=== PATIENT | female | born 1975 | race Caucasian/White ===

== ENCOUNTER 2016-08-20 06:20 | Emergency (ER) | payer MEDICAID ==
[~2016-08-20] VITALS: Ht 160 cm; Wt 67.0 kg
[2016-08-20 06:23] VITALS: Ht 160 cm; Wt 67.0 kg
--- NOTE | 2016-08-20 06:52 | ERD ---
ER Documentation Chief Complaint Date/Time DATE: 08/20/16 TIME: 06:50 Chief Complaint cough x 1 week HPI 40-year-old female presents to the emergency department for cough 4 weeks. Patient states cough is productive with green and yellow sputum. No bloody sputum. Patient has shortness of breath with coughing. No difficulty breathing. No wheezing. No fevers or chills. Has been taking Robitussin and "something for congestion" for the past week without improvement. Patient states cough is worse at night. No chest pain, chest pressure or heart palpitations. No abdominal pain, nausea, vomiting or diarrhea. No sick contacts. ROS All systems reviewed and are negative except as per history of present illness. Medications Home Meds Active Scripts Guaifenesin/Codeine Phosphate (CHERATUSSIN AC SYRUP) 118 Ml Liquid, 5 ML PO Q4H Y for COUGH, #118 ML Prov:BAKARI HARGROVE NP 08/20/16 Allergies Allergies: Coded Allergies: No Known Allergy (Unverified , 08/20/16) PMhx/Soc Medical and Surgical Hx: pt denies Medical Hx, pt denies Surgical Hx Hx Alcohol Use: No Hx Substance Use: No Hx Tobacco Use: No Smoking Status: Never smoker Physical Exam Vitals Vital Signs Date Time Temp Pulse Resp B/P Pulse Ox O2 Delivery O2 Flow Rate FiO2 08/20/16 06:23 98.2 70 20 143/63 99 Physical Exam Const: No acute distress, alert Head: Atraumatic Eyes: Normal Conjunctiva ENT: Normal External Ears, Nose and Mouth. Neck: Full range of motion..~ No meningismus. Resp: Clear to auscultation bilaterally. No wheezing, rhonchi or crackles. No stridor or labored breathing. Cardio: Regular rate and rhythm, no murmurs Abd: Soft, non tender, non distended. Normal bowel sounds Skin: No petechiae or rashes Back: No midline or flank tenderness Ext: No cyanosis, or edema Neur: Awake and alert Psych: Normal Mood and Affect Procedures/MDM Patient: JACOBO GARCIA : 1975 Age: 40 Sex: F MR #: [id number] DOS: 08/20/16 0641 Ordering MD: BAKARI HARGROVE NP Location: [facility] Room/Bed: PROCEDURE: CHEST - 1 VIEW CLINICAL INDICATION: 40-year-old female with cough. TECHNIQUE: A single frontal AP semi-erect portable view of the chest was performed. The images were reviewed on a PACS workstation. COMPARISON: None. FINDINGS: The cardiomediastinal silhouette has a normal appearance. There is no evidence for an infiltrate. There is no evidence for congestive heart failure. There is no evidence for pneumothorax. The osseous structures are intact. IMPRESSION: No evidence for active cardiopulmonary disease. MDM: 40-year-old female presents to the emergency department for productive cough 4 weeks. Upon arrival, patient is afebrile. No signs or symptoms of respiratory distress. Oxygen saturation 99% on room air. Lung exam and ENT exam are unremarkable. Since symptoms have been going on for 4 weeks and patient has not had a chest x-ray a chest x-ray was ordered. Chest x-ray reviewed by radiologist as no evidence of active cardiopulmonary disease. Vitals are stable. No respiratory distress. Patient remains alert and stable. Low suspicion for pneumonia, pleural effusion, pneumothorax or acute FL. Differential diagnosis includes but not limited to URI, influenza, otitis media , otitis externa, asthma exacerbation, croup, bronchitis, bronchiolitis and costochondritis. Patient is appropriate for outpatient management and will be given prescription for ibuprofen. Instructed patient to follow-up with primary care provider in the next 2-3 days for reassessment and additional management. Return to ED for any high fever, chest pain, difficulty breathing, shortness breath, wheezing, vomiting, diarrhea, abdominal pain or any new or worsening symptoms. Patient verbalizes understanding. All questions answered at discharge. Departure Diagnosis: Primary Impression: URI (upper respiratory infection) URI type: unspecified viral URI Qualified Code: J06.9 - Viral upper respiratory tract infection Condition: Stable BAKARI HARGROVE NP August 20, 2016 06:52
--- NOTE | 2016-08-20 07:38 | RADRPT ---
PROCEDURE: CHEST - 1 VIEW CLINICAL INDICATION: 40-year-old female with cough. TECHNIQUE: A single frontal AP semi-erect portable view of the chest was performed. The images we re reviewed on a PACS workstation. COMPARISON: None. FINDINGS: The cardiomediastinal silhouette has a normal appearance. There is no evidence for an infiltrate. There is no evidence for congestive heart failure. There is no evidence for pneumothorax. The osseou s structures are intact. IMPRESSION: No evidence for active cardiopulmonary disease. .Keven Capone MD, MD Date Time Electronically viewed and signed by .Keven Capone MD, on 08/20/2016 07:38 .M/
[2016-08-20] MEDS ORDERED: GUAI118L22 PO (08:03)
== END 2016-08-20 08:14 | disposition home or self-care (01) ==
LOC: FTE 06:20
DX: J06.9 Acute upper respiratory infection, unspecified (principal)
CPT/HCPCS: 71010; Z7502

== ENCOUNTER 2018-05-27 17:26 | Emergency (ER) | payer MEDICAID ==
[~2018-05-27] VITALS: Ht 165.1 cm; Wt 65.3 kg
[~2018-05-27 17:26] MED LIST: GUAI118L22 PO
[2018-05-27 17:29] VITALS: Ht 165.1 cm; Wt 65.3 kg
[2018-05-27] MEDS ORDERED: KETOROLAC 60 MG INJ IM STA (19:11)
[2018-05-27] MEDS ORDERED: ONDANSETRON (ODT) 4 MG TAB ODT STA (19:11)
[2018-05-27] MEDS ORDERED: ACETAMINOPHEN 325 MG TAB PO ONE (19:30)
[2018-05-27] MEDS ORDERED: BENZ-6 PO (20:01)
[2018-05-27] MEDS ORDERED: ONDA4TAB14 PO (20:01)
[2018-05-27] MEDS ORDERED: ACET500C5 PO (20:01)
--- NOTE | 2018-05-27 20:04 | ERD ---
ER Documentation Chief Complaint Chief Complaint Fever, [place], body aches X 3 days HPI 42-year-old female patient with no significant past medical history presents to ED complaining of fever, headache, cough, body aches that started about 3 days ago. Patient reports that she has had a few episodes of nonbilious nonbloody vomiting. Denies any sick contacts. Denies any chest pain, shortness of breath, diarrhea, neck stiffness. ROS All systems reviewed and are negative except as per history of present illness. Medications Home Meds Active Scripts Benzonatate* (Tessalon Perle*) 100 Mg Capsule, 100 MG PO Q8H PRN for COUGH, #20 CAP Prov:AVIVA JAY PA-C 05/27/18 Acetaminophen* (Tylophen*) 500 Mg Capsule, 1 CAP PO Q6H PRN for PAIN AND OR ELEVATED TEMP, #20 CAP Prov:AVIVA JAY PA-C 05/27/18 Ondansetron (Ondansetron Odt) 4 Mg Tab.rapdis, 4 MG PO Q6H PRN for NAUSEA AND/OR VOMITING, #10 TAB Prov:AVIVA JAY PA-C 05/27/18 Guaifenesin/Codeine Phosphate (CHERATUSSIN AC SYRUP) 118 Ml Liquid, 5 ML PO Q4H PRN for COUGH, #118 ML Prov:BAKARI HARGROVE NP 08/20/16 Allergies Allergies: Coded Allergies: No Known Allergy (Unverified , 08/20/16) PMhx/Soc Medical and Surgical Hx: pt denies Medical Hx, pt denies Surgical Hx Hx Alcohol Use: No Hx Substance Use: No Hx Tobacco Use: No Smoking Status: Never smoker FmHx Family History: No diabetes, No coronary disease Physical Exam Vitals Vital Signs Date Temp Pulse Resp B/P (MAP) Pulse Ox O2 O2 Flow FiO2 Time Delivery Rate 05/27/18 102.4 19:21 05/27/18 102.4 19:21 05/27/18 101.0 85 18 157/76 100 17:29 (103) Physical Exam Const: [id number], well-nourished. In no acute distress. Head: Atraumatic, normocephalic Eyes: Normal Conjunctiva without injection. No purulent discharge. PERRL. EOMI ENT: Normal external ear. Ear canal without erythema. Tympanic membrane pearly jha without effusion or bulging. Nasal canal clear with normal turbinates. Moist oropharynx without tonsillar exudates. Non-erythematous pharynx. Uvula midline. No drooling. No trismus. Neck: Full range of motion. No meningismus. No cervical lymphadenopathy. Resp: Clear to auscultation bilaterally. No wheezing, rhonchi, rales, or crackles. No accessory muscle use. No retractions. Cardio: Regular rate and rhythm. No murmurs, rubs or gallops. Abd: Soft, non tender, non distended. Normal bowel sounds. No palpable masses. No rebound tenderness. No guarding. Skin: No petechiae or rashes Back: No midline tenderness. No CVA tenderness. Ext: No cyanosis, or edema. Neur: Awake and alert. Psych: Normal Mood and Affect Results 24 hrs Laboratory Tests Test 05/27/18 19:19 05/27/18 19:27 Urine Color YELLOW Urine Clarity CLOUDY Urine pH 8.0 Urine Specific [place] 1.014 Urine Ketones NEGATIVE mg/dL Urine Nitrite NEGATIVE mg/dL Urine Bilirubin NEGATIVE mg/dL Urine Urobilinogen NEGATIVE mg/dL Urine Leukocyte Esterase NEGATIVE Mc/ul Urine Microscopic RBC 5 /HPF Urine Microscopic WBC 1 /HPF Urine Squamous Epithelial Cells MODERATE /HPF Urine Amorphous Crystals FEW /HPF Urine Bacteria FEW /HPF Urine Hemoglobin 1+ mg/dL Urine Glucose NEGATIVE mg/dL Urine Total Protein NEGATIVE mg/dl POC Beta HCG, Qualitative NEGATIVE Current Medications Medications Dose Sig/Tom Start Time Status Last (Trade) Ordered Route PRN Stop Time Admin Dose Reason Admin Ketorolac 60 mg ONCE STAT 05/27/18 DC 05/27/18 Tromethamine IM 19:11 05/27/18 19:29 (Toradol) 19:13 Ondansetron 4 mg ONCE STAT 05/27/18 DC 05/27/18 HCl (Zofran ODT 19:11 05/27/18 19:21 Odt) 19:13 650 mg ONCE ONCE 05/27/18 DC 05/27/18 Acetaminophen PO 19:30 05/27/18 19:21 (Tylenol 19:31 Tab) Procedures/MDM 42-year-old female patient with no significant past medical history presents to ED complaining of fever, headache, body aches and slight cough that started about 3 days ago. Patient is fever 101.0. Influenza, urinalysis, urine was ordered to further evaluate patient. Patient was treated here in the ED with Toradol 60 mg IM, Tylenol 650 mg, Zofran 4 mg p.o. with improvement of her symptoms. Patient reports that she did not vomit here in the ED. Successful p.o. challenge. Discussed patient's case with Dr. Summers, my supervising physician. Negative influenza. Patient likely has symptoms of viral etiology. Urinalysis showed 1+ hematuria and 5 red blood cells. Low suspicion for septic renal stone, acute abdomen, pneumonia, pneumothorax, urinary tract infection, sepsis or other emergent conditions. Diagnosis: Body aches, Cough, Headache Discharge medications: Tessalon Perles, Tylenol, Zofran Follow up with primary care physician in 1-2 days. Instructed patient to return to the ED sooner for any worsening symptoms. Patient's questions were answered. Patient is hemodynamically stable. Patient understood and agreed with discharge plan. Patient discharged stable. Disclaimer: Inadvertent spelling and grammatical errors are likely due to EHR/dictation software use and do not reflect on the overall quality of patient care. Also, please note that the electronic time recorded on this note does not necessarily reflect the actual time of the patient encounter. Departure Diagnosis: Primary Impression: Body aches Additional Impressions: Cough Headache Headache type: unspecified Headache chronicity pattern: unspecified pattern Intractability: not intractable Qualified Codes: R51 - Headache Condition: Stable Patient Instructions: Viral Syndrome (Adult) Referrals: [facility] YOU HAVE RECEIVED A MEDICAL SCREENING EXAM AND THE RESULTS INDICATE THAT YOU DO NOT HAVE A CONDITION THAT REQUIRES URGENT TREATMENT IN THE EMERGENCY DEPARTMENT. FURTHER EVALUATION AND TREATMENT OF YOUR CONDITION CAN WAIT UNTIL YOU ARE SEEN IN YOUR DOCTORS OFFICE WITHIN THE NEXT 1-2 DAYS. IT IS YOUR RESPONSIBILITY TO MAKE AN APPOINTMENT FOR FOLOW-UP CARE. IF YOU HAVE A PRIMARY DOCTOR --you should call your primary doctor and schedule an appointment IF YOU DO NOT HAVE A PRIMARY DOCTOR YOU CAN CALL OUR PHYSICIAN REFERRAL HOTLINE AT IF YOU CAN NOT AFFORD TO SEE A PHYSICIAN YOU CAN CHOSE FROM THE FOLLOWING [facility] [address] [facility] [facility] [address] [facility] [address] [facility] [address] [facility] [address] [facility]. [facility]. [address] [facility]. [facility] YOU HAVE RECEIVED A MEDICAL SCREENING EXAM AND THE RESULTS INDICATE THAT YOU DO NOT HAVE A CONDITION THAT REQUIRES URGENT TREATMENT IN THE EMERGENCY DEPARTMENT. FURTHER EVALUATION AND TREATMENT OF YOUR CONDITION CAN WAIT UNTIL YOU ARE SEEN IN YOUR DOCTORS OFFICE WITHIN THE NEXT 1-2 DAYS. IT IS YOUR RESPONSIBILITY TO MAKE AN APPOINTMENT FOR FOLOW-UP CARE. IF YOU HAVE A PRIMARY DOCTOR --you should call your primary doctor and schedule and appointment IF YOU DO NOT HAVE A PRIMARY DOCTOR YOU CAN CALL OUR PHYSICIAN REFERRAL HOTLINE AT . IF YOU CAN NOT AFFORD TO SEE A PHYSICIAN YOU CAN CHOSE FROM THE FOLLOWING [facility] INSTITUTIONS: [facility] [address] [place] [address] [facility] [address] [place] [address] [facility] [address] [place] [address] [facility] URGENT CARE/SPECIALTIES Additional Instructions: Llame al doctor MAANA y sully nilay ELISE PARA DENTRO DE 2-3 PRIETO.Dgale a la secretaria que nosotros le instruimos hacer esta elise.Avise o llame si zhu condicin se empeora antes de la elise. Regresa aqui si peor o no mejor. AVIVA JAY PA-C May 27, 2018 20:04
[2018-05-27 20:08] VITALS: BP 114/68; PULSE 66; RESP 18
== END 2018-05-27 20:09 | disposition home or self-care (01) ==
LOC: FTE 17:26
DX: R05 Cough (principal); R51 Headache; R11.10 Vomiting, unspecified
CPT/HCPCS: 81001; 81025; 87400; 96372; J1885; Z7502; Z7610